=== PATIENT | female | born 1995 | race Caucasian/White ===

== ENCOUNTER 2019-11-07 08:00 | Outpatient (CLI) | payer OTHER ==
--- NOTE | 2019-11-07 15:38 | XRAY Report ---
PROCEDURE: Wrist 3 View LT INDICATIONS: PAIN IN LT WRIST TECHNIQUE: 3 views of the wrist were acquired. COMPARISON: None FINDINGS: Bones: No fractures or dislocations. No suspicious bony lesions. Scaphoid view: Not obtained Soft tissues: No suspicious soft tissue calcifications. IMPRESSION: No visualized acute fracture or dislocation. However, occult injury cannot be excluded. Recommend olive rt interval imaging follow-up in 7-10 days as clinically indicated for additional evaluation. Reviewed by: Roxana Chavira MD on 11/07/2019 3:37 PM PDT Approved by: Roxana Chavira MD on 11/07/2019 3:37 PM PDT Station ID: [id number]
== END 2019-11-07 23:59 | disposition home or self-care (01) ==
LOC: DI.S 08:00
PROVIDERS: ATTEND Physician Assistant
DX: S63.502A Unspecified sprain of left wrist, initial encounter (principal)

== ENCOUNTER 2019-12-11 14:35 | Outpatient (CLI) | payer OTHER ==
--- NOTE | 2019-12-11 14:38 | XRAY Report ---
PROCEDURE: Wrist 3 View LT INDICATIONS: LEFT WRIST SPRAIN TECHNIQUE: 3 views of the wrist were acquired. COMPARISON: 3 views of the wrist dated 11/07/2019 FINDINGS: Bones: No fractures or dislocations. No suspicious bony lesions. Soft tissues: No suspicious soft tissue calcifications. IMPRESSION: 1. No fracture or dislocation. If pain persists, cross-sectional imaging with MRI or CT could be used to further characterize findings. Reviewed by: Ivy Singleton MD on 12/11/2019 2:37 PM PDT Approved by: Ivy Singleton MD on 12/11/2019 2:37 PM PDT Station ID: [id number]
== END 2019-12-11 23:59 | disposition home or self-care (01) ==
LOC: DI.WCP 14:35
PROVIDERS: ATTEND Physician Assistant
DX: S63.592A Other specified sprain of left wrist, initial encounter (principal)